=== PATIENT | female | born 1960 | race Caucasian/White ===

== ENCOUNTER 2019-04-30 10:57 | Emergency (ER) | payer SELFPAY ==
[2019-04-30 15:55] LABS: ADD MAN DIFF? NO
[2019-04-30 16:01] LABS: WHITE BLOOD COUNT 3.9 10^3/ul (4.8-10.8)
[2019-04-30 16:01] LABS: BASOPHILS % 0.8 % (0.0-2.0); EOSINOPHILS # 0.1 10^3/ul (0.0-0.5); EOSINOPHILS % 2.6 % (0.0-7.0); HEMATOCRIT 47.3 % (37.0-47.0); HEMOGLOBIN 15.3 g/dl (12.0-16.0); LYMPHOCYTES # 1.2 10^3/ul (0.8-2.9); LYMPHOCYTES % 31.7 % (15.0-51.0); MEAN CORPUSCULAR HEMOGLOBIN 31.5 pg (29.0-33.0); MEAN CORPUSCULAR HGB CONC 32.3 g/dl (32.0-37.0); MEAN CORPUSCULAR VOLUME 97.5 fl (82.0-101.0); MEAN PLATELET VOLUME 9.8 fl (7.4-10.4); MONOCYTE # 0.4 10^3/ul (0.3-0.9); MONOCYTES % 9.2 % (0.0-11.0); NEUTROPHIL # 2.2 10^3/ul (1.6-7.5); NEUTROPHILS % 55.4 % (39.0-77.0); PLATELET COUNT 133 10^3/UL (140-415); RED BLOOD COUNT 4.85 10^6/ul (4.20-5.40); RED CELL DISTRIBUTION WIDTH 11.8 % (11.5-14.5)
[2019-04-30 16:40] LABS: MAGNESIUM 1.5 mg/dl (1.7-2.5)
[2019-04-30 16:41] LABS: ANION GAP 6 (5-13); BLOOD UREA NITROGEN 16 mg/dl (7-20); CALCIUM 9.8 mg/dl (8.4-10.2); CARBON DIOXIDE 33 mmol/L (21-31); CHLORIDE 100 mmol/L (97-110); CREATINE KINASE 115 IU/L (23-200); CREATININE 0.57 mg/dl (0.44-1.00); Estimated GFR > 60 mL/min (>60); GLUCOSE 90 mg/dl (70-220); SODIUM 139 mmol/L (135-144)
[2019-04-30] MEDS ORDERED: MAGNESIUM SULFATE 1 GM/D5W 100 ML IVPB (17:00)
[2019-04-30] MEDS: MAGNESIUM CHLORIDE (SR) 64 MG TAB PO (17:20)
== END 2019-04-30 17:43 | disposition home or self-care (01) ==
LOC: E/R 10:57
DX: E83.42 Hypomagnesemia (principal)
CPT/HCPCS: 80048; 82550; 83735; 85025; 99283